=== PATIENT | female | born 1960 | race Caucasian/White ===

== ENCOUNTER 2025-04-11 17:15 | Emergency (ER) | payer BC ==
[2025-04-11 18:20] LABS: BASOPHILS ABSOLUTE AUTO 0.1 K/mm3 (0.0-0.2); BASOPHILS PERCENT AUTO 0.3 % (0.0-1.0); EOSINOPHILS ABSOLUTE AUTO 0.3 K/mm3 (0.0-0.4); EOSINOPHILS PERCENT AUTO 1.5 % (0.0-6.0); IMMATURE GRAN ABSOLUTE AUTO 0.05 K/mm3 (0.00-0.05); IMMATURE GRAN PERCENT AUTO 0.3 % (0.0-0.4); LYMPHOCYTES ABSOLUTE AUTO 11.0 K/mm3 (1.0-4.8); LYMPHOCYTES PERCENT AUTO 58.3 % (24.0-44.0); MEAN PLATELET VOLUME 11.8 fl (9.4-12.3); MONOCYTES ABSOLUTE AUTO 0.8 K/mm3 (0.0-0.8); MONOCYTES PERCENT AUTO 4.0 % (0.0-8.0); NEUTROPHILS ABSOLUTE AUTO 6.7 K/mm3 (1.8-7.7); NEUTROPHILS PERCENT AUTO 35.6 % (41.0-71.0); NRBC ABSOLUTE 0.02 (0.00-0.02); NRBC PERCENT 0.1 % (0.0-0.2); PLATELET COUNT,PLT 290 K/mm3 (150-400); RED BLOOD CELL COUNT 4.31 M/mm3 (4.10-5.30); WHITE BLOOD CELL COUNT,WBC 18.85 K/mm3 (3.9-11.3)
[2025-04-11 18:32] LABS: BASE EXCESS ARTERIAL 6.1 (-2-2.0); BICARBONATE,ARTERIAL 29.6 meq/L (22.0-26.0); O2 SATURATION ARTERIAL 91.4 % (96.0-97.0); PCO2 ARTERIAL 38.0 mmHg (35.0-45.0); PO2 ARTERIAL 58.0 mmHg (80.0-100.0)
[2025-04-11 18:42] LABS: A/G RATIO 0.9 (1-2); ALANINE AMINOTRANSFERASE,ALT 33.0 U/L (14-59); ASPARTATE AMNIOTRANSFERASE,AST 22.0 U/L (15-37); BILIRUBIN TOTAL 0.2 mg/dL (0.2-1.0); BLOOD UREA NITROGEN,BUN 8.0 mg/dL (7-18); CARBON DIOXIDE,CO2 30.0 mEq/L (21-32); CHLORIDE,CL 101.0 mEq/L (98-107); CREATININE 0.8 mg/dL (0.55-1.02); EST CRCL DRUG DOSING (CG) 67.38 mL/min; ESTIMATED GFR 83.0 mL/min (>60); GLUCOSE RANDOM 104.0 mg/dL (70-99); POTASSIUM,K 3.2 mEq/L (3.5-5.1); PROTEIN TOTAL,TP 6.8 g/dl (6.4-8.2); SODIUM,NA 139.0 mEq/L (136-145); TROPONIN I HIGH SENSITIVITY 7.0 pg/mL (<=51)
[2025-04-11] MEDS: methylPREDNISolone Sodium Succinate 125 MG/2 ML SDV IVPUSH ONE (18:43)
== END 2025-04-11 20:05 | disposition home or self-care (01) ==
LOC: JD.ED 17:15
DX: J44.1 Chronic obstructive pulmonary disease with (acute) exacerbation (principal); K92.1 Melena; E78.00 Pure hypercholesterolemia, unspecified; I10 Essential (primary) hypertension; K21.9 Gastro-esophageal reflux disease without esophagitis; F17.210 Nicotine dependence, cigarettes, uncomplicated; Z88.8 Allergy status to other drugs, medicaments and biological substances; Z79.82 Long term (current) use of aspirin; Z79.899 Other long term (current) drug therapy
CPT/HCPCS: 36415; 36600; 71045; 80053; 82803; 83690; 83735; 83880; 84484; 85025; 93005; 94640; 96365; 96375; 99285; J0456; J0696; J2919; J7050; J7620; 93010; 99284; A9270-GY